=== PATIENT | male | born 2000 | race African-American/Black ===

== ENCOUNTER 2023-07-28 13:49 | Emergency (ER) | payer SELFPAY ==
[~2023-07-28] VITALS: Ht 175.3 cm; Wt 58.0 kg
[2023-07-28 14:07] VITALS: BP 109/74; TEMP 98.8; O2SAT 100
[2023-07-28 14:10] VITALS: PULSE 89; RESP 18
== END 2023-07-28 17:25 | disposition left against medical advice (07) ==
LOC: ER 13:49
DX: H10.9 Unspecified conjunctivitis (principal)
CPT/HCPCS: 99281

== ENCOUNTER 2024-07-11 20:39 | Emergency (ER) | payer SELFPAY ==
[~2024-07-11] VITALS: Ht 175.3 cm; Wt 57.0 kg
[2024-07-11 20:40] VITALS: O2SAT 100
[2024-07-11 21:00] VITALS: BP 130/98; PULSE 90; RESP 18; TEMP 36.8; O2SAT 100
== END 2024-07-11 21:29 | disposition home or self-care (01) ==
LOC: ER 20:39
DX: R45.851 Suicidal ideations (principal)
CPT/HCPCS: 99283